=== PATIENT | female | born 1950 | race Caucasian/White ===

== ENCOUNTER 2019-10-09 07:18 | Outpatient (REF) | payer MEDICARE, OTHER, SELFPAY ==
[2019-10-09 13:15] LABS: Chol HDL Ratio 3.68 mg/dL (0.0-4.40); Cholesterol 254 mg/dL (0-200); Glucose 80 mg/dL (65-115); HDL Cholesterol 69 mg/dL (60-100); LDL Cholesterol Calculated 164 mg/dL (50-129); LDL HDL Ratio 2.38 RATIO (0.00-3.22); Triglycerides 107 mg/dL (0-150)
[2019-10-09 13:47] LABS: Estmated Average Glucose 117; Hemoglobin A1C 5.7 % (4.0-6.0)
== END 2019-10-09 07:19 | disposition home or self-care (01) ==
LOC: LAB 07:18
PROVIDERS: Family Provider Internal Medicine; Visit Provider Dermatology
DX: Z01.89 Encounter for other specified special examinations (principal)
CPT/HCPCS: 80061; 82947; 83036

== ENCOUNTER 2020-01-07 08:46 | Outpatient (CLI) | payer MEDICARE, OTHER, SELFPAY ==
--- NOTE | 2020-01-07 09:13 | MM_ITS ---
WS: [id number] BILATERAL SCREENING DIGITAL MAMMOGRAM WITH CAD HISTORY: SCREEN COMPARISON: 10/21/2018 and 10/14/2017 Bilateral CC and MLO views submitted. Computer aided detection analyzed. Breast composition: There are scattered areas of fibroglandular density. No suspicious masses, microc alcifications or architectural distortion. Benign calcifications in each breast. MM/[id number] IMPRESSION: BI-RADS: 2-Benign FOLLOW UP: 1 Year Follow-up
== END 2020-01-07 08:47 | disposition home or self-care (01) ==
LOC: RADSHAW 08:53
PROVIDERS: PCP Internal Medicine; Visit Provider Internal Medicine
DX: Z12.31 Encounter for screening mammogram for malignant neoplasm of breast (principal)
CPT/HCPCS: 77067

== ENCOUNTER 2021-02-14 10:19 | Outpatient (CLI) | payer MEDICARE, BC, SELFPAY ==
--- NOTE | 2021-02-14 10:42 | MM_ITS ---
WS: [id number] BILATERAL SCREENING DIGITAL MAMMOGRAM WITH CAD HISTORY: SCREENING COMPARISON: 01/07/2020 and 10/21/2018 Bilateral CC and MLO views submitted. Computer aided detection analyzed. Breast composition: There are scattered areas of fibroglandular density. No suspicious masses, microc alcifications or architectural distortion. Coarse calcifications in the RIGHT breast. No suspicious i nterval change or mass. MM/[id number] IMPRESSION: BI-RADS: 2-Benign FOLLOW UP: 1 Year Follow-up
== END 2021-02-14 10:20 | disposition home or self-care (01) ==
LOC: RADSHAW 10:27
PROVIDERS: PCP Internal Medicine; Visit Provider Internal Medicine
DX: Z12.31 Encounter for screening mammogram for malignant neoplasm of breast (principal)
CPT/HCPCS: 77067

== ENCOUNTER 2022-03-02 11:05 | Outpatient (CLI) | payer MEDICARE, BC, SELFPAY ==
--- NOTE | 2022-03-02 11:14 | MM_ITS ---
WS: [id number] BILATERAL SCREENING DIGITAL BREAST TOMOSYNTHESIS MAMMOGRAM WITH CAD HISTORY: SCREENING COMPARISON: 02/14/2021, 01/07/2020 Bilateral CC and MLO views with tomosynthesis and synthetic mammography submitted. Computer aided det ection analyzed. Breast composition: There are scattered areas of fibroglandular density. No suspicious masses, microc alcifications or architectural distortion. Benign coarse calcification central RIGHT breast. MM/[id number] IMPRESSION: BI-RADS: 2-Benign FOLLOW UP: 1 Year Follow-up
== END 2022-03-02 11:06 | disposition home or self-care (01) ==
PROVIDERS: PCP Internal Medicine; Visit Provider Internal Medicine
DX: Z12.31 Encounter for screening mammogram for malignant neoplasm of breast (principal)
CPT/HCPCS: 77063; 77067

== ENCOUNTER → 2022-06-08 08:28 | Outpatient (BNVA) | payer MEDICARE, BC, SELFPAY | PROVIDERS: PCP Family Medicine; Visit Provider Family Medicine | DX: I10 Essential (primary) hypertension (principal); M19.90 Unspecified osteoarthritis, unspecified site; M81.0 Age-related osteoporosis without current pathological fracture; Z76.89 Persons encountering health services in other specified circumstances; E78.5 Hyperlipidemia, unspecified | CPT/HCPCS: 80053; 80061; 84443; 85025 ==

== ENCOUNTER 2023-03-14 10:24 | Outpatient (CLI) | payer MEDICARE, BC, SELFPAY ==
--- NOTE | 2023-03-14 10:35 | MM_ITS ---
WS: [id number] Bilateral screening 3D tomosynthesis digital mammogram, 03/14/2023 Clinical Data: SCREENING Comparison: 03/02/2022 02/14/2021 01/07/2020, 10/21/2018, 10/14/2017, 09/19/2016, 08/24/2015, 08/11/2014, , 05/15/2012, 05/03/2011, 05/02/2010, 04/18/2009, 12/25/2007. Findings: The breast parenchymal pattern shows fibroglandular tissue. No spiculated masses or clustered calcifi cations are seen. There are no secondary signs of carcinoma. There is a central coarse calcification of the right breast unchanged. There is a mole marker on the right breast. MM/[id number] Impression: 1. Negative bilateral mammogram unchanged. 2. Recommend annual screening mammograms. BIRADS: 1-Negative FOLLOW UP: 1 Year Follow-up The CAD hot box checker was used.
== END 2023-03-14 10:25 | disposition home or self-care (01) ==
LOC: RAD 10:30 → MOBLMAM 11:01
PROVIDERS: PCP Family Medicine; Visit Provider Family Medicine
DX: Z12.31 Encounter for screening mammogram for malignant neoplasm of breast (principal)
CPT/HCPCS: 77063; 77067

== ENCOUNTER 2023-04-02 10:41 | Outpatient (CLI) | payer MEDICARE, BC, SELFPAY ==
--- NOTE | 2023-04-02 10:49 | XRR_ITS ---
PROCEDURE INFORMATION: Exam: XR Chest Exam date and time: 04/02/2023 11:05 AM Age: 72 years old Clinical indication: Pain; Dyspnea; On breathing; Additional info: Dyspnea, chest pain. TECHNIQUE: Imaging protocol: Radiologic exam of the chest. Views: 2 views. COMPARISON: No relevant prior studies available. FINDINGS: Lungs: Lungs appear hyperinflated but free of acute disease. Minor granulomatous changes. Pleural spaces: Unremarkable. No pleural effusion. No pneumothorax. Heart/Mediastinum: Unremarkable. No cardiomegaly. Bones/joints: No acute findings. XR/XR chest 2V* [id number] IMPRESSION: No acute findings.
== END 2023-04-02 10:42 | disposition home or self-care (01) ==
PROVIDERS: PCP Family Medicine; Visit Provider Family Medicine
DX: R09.1 Pleurisy (principal); I49.9 Cardiac arrhythmia, unspecified; I10 Essential (primary) hypertension; E83.52 Hypercalcemia
CPT/HCPCS: 71046; 80053; 80061; 82306; 82607; 84443; 85027; 86140

== ENCOUNTER → 2023-05-02 14:36 | Outpatient (BNVA) | payer MEDICARE, BC, SELFPAY | PROVIDERS: PCP Family Medicine; Visit Provider Dermatology | DX: L82.1 Other seborrheic keratosis (principal); L81.4 Other melanin hyperpigmentation; D22.5 Melanocytic nevi of trunk; D23.71 Other benign neoplasm of skin of right lower limb, including hip; L57.0 Actinic keratosis | CPT/HCPCS: 17000; 99213 ==

== ENCOUNTER → 2023-10-29 13:56 | Outpatient (BNVA) | payer MEDICARE, BC, SELFPAY | PROVIDERS: PCP Family Medicine; Visit Provider Dermatology | DX: D48.5 Neoplasm of uncertain behavior of skin (principal); L57.8 Other skin changes due to chronic exposure to nonionizing radiation; L81.4 Other melanin hyperpigmentation | CPT/HCPCS: 11104; 99213 ==

== ENCOUNTER → 2023-12-24 14:07 | Outpatient (BNVA) | payer MEDICARE, BC, SELFPAY | PROVIDERS: PCP Family Medicine; Visit Provider Dermatology | DX: L57.8 Other skin changes due to chronic exposure to nonionizing radiation (principal); L81.4 Other melanin hyperpigmentation; D23.9 Other benign neoplasm of skin, unspecified | CPT/HCPCS: 99213 ==

== ENCOUNTER → 2024-02-13 13:05 | Outpatient (BNVA) | payer MEDICARE, BC, SELFPAY | PROVIDERS: PCP Family Medicine; Visit Provider Dermatology | DX: L57.8 Other skin changes due to chronic exposure to nonionizing radiation (principal); L81.4 Other melanin hyperpigmentation; D23.9 Other benign neoplasm of skin, unspecified; D48.5 Neoplasm of uncertain behavior of skin | CPT/HCPCS: 11310; 99213 ==

== ENCOUNTER → 2024-04-14 11:14 | Outpatient (BNVA) | payer MEDICARE, BC, SELFPAY | PROVIDERS: PCP Family Medicine; Visit Provider Family Medicine | DX: I10 Essential (primary) hypertension (principal); G47.00 Insomnia, unspecified; E55.9 Vitamin D deficiency, unspecified | CPT/HCPCS: 80053; 80061; 82306; 84443; 85025 ==

== ENCOUNTER → 2024-11-19 15:04 | Outpatient (BNVA) | payer MEDICARE, OTHER, SELFPAY | PROVIDERS: PCP Family Medicine; Visit Provider Dermatology | DX: D48.5 Neoplasm of uncertain behavior of skin (principal); L82.1 Other seborrheic keratosis; L73.8 Other specified follicular disorders; L72.0 Epidermal cyst; L57.8 Other skin changes due to chronic exposure to nonionizing radiation | CPT/HCPCS: 99213 ==

== ENCOUNTER 2024-12-22 17:25 | Emergency (ER) | payer MEDICARE, OTHER, SELFPAY ==
[2024-12-22 17:32] VITALS: BP 147/70; PULSE 95; RESP 18; TEMP 36.4; O2SAT 96
--- NOTE | 2024-12-22 17:36 | XRR_ITS ---
PROCEDURE INFORMATION: Exam: XR Right Wrist Exam date and time: 12/22/2024 5:46 PM Age: 74 years old Clinical indication: Injury or trauma; Fall; Blunt trauma (contusions or hematomas); Wrist; Right TECHNIQUE: Imaging protocol: Radiologic exam of the right wrist. Views: Four views. COMPARISON: No relevant prior studies available. FINDINGS: Bones/joints: No acute fractures. Chronic fracture deformity of the distal radial metaphysis. No dislocations or subluxations. Moderate to advanced degenerative changes of the triscaphe articulation. Osteopenia. Soft tissues: Normal. XR/XR wrist RT min 3V* [id number] IMPRESSION: 1. No acute fractures or malalignment. 2. Chronic fracture deformity of the distal radius. 3. Osteopenia.
--- NOTE | 2024-12-22 18:13 | W.ED.EXTPRO ---
HPI - Extremity Problem General: Chief complaint: Extremity Injury, Upper Stated complaint: R wrist pain, fall Time Seen by Provider: 12/22/24 17:36 Source: patient Mode of arrival: ambulatory Limitations: no limitations History of Present Illness: 74yo female presents with family for evaluation right wrist pain and swelling following a fall that occurred at 10:00 this morning. Patient reports that she was in her driveway and leaned over to pharmacy picking technician something. States that she saw a snake, jump backwards, lost her balance, and attempted to catch herself with her right arm extended behind her. Patient states she was hoping it was just a sprain and has been applying a cool compress throughout the day, but it is not helping much. Patient reports that she is able to move her fingers with no difficulty. States she is right-hand dominant. She denies any other injury or concern at this time. Associated symptoms: Deny fever(s) Related Data Home Medications ?Medication ?Instructions ?Recorded ?Confirmed aspirin 81 mg tablet,delayed 81 mg PO DAILY 09/20/20 04/14/24 release (Adult Aspirin Regimen) multivitamin with iron (Hair 1 tab PO DAILY 09/20/20 04/14/24 Vitamins tablet) cholecalciferol (vitamin D3) 10 10 mcg PO DAILY 01/11/21 04/14/24 mcg (400 unit) capsule lutein 20 mg capsule 20 mg PO DAILY 01/11/21 04/14/24 Previous Rx's ?Medication ?Instructions ?Recorded triamcinolone acetonide 0.1 % 1 applic topical BID #453.6 grams 01/11/21 topical ointment rizatriptan 5 mg disintegrating See Rx Instructions PO .COMPLEX 04/14/24 tablet #14 tabs zolpidem 10 mg tablet 10 mg PO .at bedtime. 30 days #30 04/14/24 tabs hydrochlorothiazide 12.5 mg tablet See Rx Instructions .Route 10/13/24 .COMPLEX #90 tabs hydrocodone 5 mg-acetaminophen 325 1 tab PO Q8H PRN pain #12 tabs 12/22/24 mg tablet ondansetron 4 mg disintegrating 4 mg PO Q8H #20 tabs 12/22/24 tablet Allergies Allergy/AdvReac Type Severity Reaction Status Date / Time alendronate sodium (From Allergy very sick Verified 04/14/24 10:19 Fosamax) duloxetine (From Cymbalta) Allergy lost weight Verified 04/14/24 10:19 tramadol Allergy throwing up Verified 04/14/24 10:19 Review of Systems Const: Denies: fever(s) or chills GI: Denies: vomiting Musc: Reports: extremity pain (Right wrist) and extremity swelling (Right wrist) PFSH ED PFSH: Medical History Osteoporosis HTN (hypertension) Surgical History H/O shoulder surgery H/O: hysterectomy Family History Other Hypertension Social History Smoking and tobacco/nicotine status: never used tobacco/nicotine Second hand smoke exposure: No Alcohol intake: never Substance/Drug Use: never Adopted: No Caregiver/support person: No Lives independently: No Household members: spouse Housing: House Marital status: Number of children: 2 Highest education level completed: Associate Degree: Occupational, Technical, Vocational Program service: No Current occupational status: retired Pets and animals: Yes Do you think of yourself as: Straight/Heterosexual Current gender identity: Female Special cookie needs: No Agree to transfusion: Yes Female Reproductive History: Para: 2 Spontaneous abortions: No Physical Exam Const: COMMON NORMALS: no acute distress, patient oriented x3, healthy appearing and alert GENERAL APPEARANCE: cooperative OTHER: Patient is sitting upright in vertical flow recliner in no acute distress. She is able to give history with no difficulty. She is interactive with exam appropriately. Family is at bedside HENMT: COMMON NORMALS: normocephalic and atraumatic HEAD & SCALP: normocephalic and atraumatic Chest: CHEST: Yes Symmetrical chest wall rise Resp: COMMON NORMALS: normal respiratory effort EFFORT & INSPECTION: Yes able to speak in complete sentences Extremity: RIGHT UPPER EXTREMITY: Yes wrist Right wrist: Yes inspection (Ecchymosis and swelling noted), Yes ROM (Increased pain with supination/pronation) and Yes neurovascular exam (Moves fingers with no difficulty. Sensation intact. Capillary refill less) Neuro: COMMON NORMALS: patient oriented x3 SENSORIUM/ORIENTATION: Yes alert Psych: COMMON NORMALS: cooperative Course Vital Signs: Vital signs: Vital Signs Temperature 97.5 F L 12/22/24 17:32 Pulse Rate 95 12/22/24 17:32 Respiratory Rate 18 12/22/24 17:32 Blood Pressure 147/70 12/22/24 17:32 Pulse Oximetry 96 12/22/24 17:32 Oxygen Delivery Me thod Room Air 12/22/24 17:32 MDM - Extremity (Nontraumatic) Medical Decision Making 74yo female presents with family for evaluation right wrist pain and swelling following a fall that occurred at 10:00 this morning. Patient reports that she was in her driveway and leaned over to pharmacy picking technician something. States that she saw a snake, jump backwards, lost her balance, and attempted to catch herself with her right arm extended behind her. Patient states she was hoping it was just a sprain and has been applying a cool compress throughout the day, but it is not helping much. Patient reports that she is able to move her fingers with no difficulty. States she is right-hand dominant. She denies any other injury or concern at this time. Patient is nontoxic in appearance. Vital signs are stable. X-ray reveals an intra-articular distal radius fracture, pending radiology review. Discussed finding and reviewed images with patient and the family. Sugar-tong splint applied, hydrocodone and ondansetron provided for patient in the emergency department. Discussed rest, ice, elevation. Discussed follow-up with orthopedics for definitive care of the fracture. Prescription for hydrocodone and ondansetron were sent to patient's pharmacy, sedation precautions provided. Recommend following up with orthopedics as soon as possible. Return precautions provided. Patient and family state understanding and have no further questions or concerns at this time. Lab Data Radiology Impressions Wrist X-Ray 12/22/24 17:36 IMPRESSION: 1. No acute fractures or malalignment. 2. Chronic fracture deformity of the distal radius. 3. Osteopenia. All radiology interpretation(s) finalized by discharge ED provider radiology interpretation(s): 1805: intra-articular distal radius fracture, pending radiology review Discharge Plan Discharge Patient Disposition: Home Clinical Impression: Fracture of right distal radius Qualifiers: Encounter type: initial encounter Fracture type: closed Fracture morphology: unspecified fracture morphology Qualified Code(s): S52.501A - Unspecified fracture of the lower end of right radius, initial encounter for closed fracture Condition: Stable Prescriptions: New hydrocodone-acetaminophen 5-325 mg tablet 1 tab PO Q8H PRN (Reason: pain) Qty: 12 0RF ondansetron 4 mg tablet,disintegrating 4 mg PO Q8H Qty: 20 0RF No Action multivitamin with iron [Hair Vitamins] Tablet 1 tab PO DAILY aspirin [Adult Aspirin Regimen] 81 mg tablet,delayed release (DR/EC) 81 mg PO DAILY cholecalciferol (vitamin D3) 10 mcg (400 unit) capsule 10 mcg PO DAILY lutein 20 mg capsule 20 mg PO DAILY Rx Instructions: give with meal/snack triamcinolone acetonide 0.1 % ointment 1 applic topical BID Qty: 453.6 0RF Rx Instructions: M-F to legs x 4 weeks zolpidem 10 mg tablet 10 mg PO .at bedtime. 30 Days Qty: 30 5RF rizatriptan 5 mg tablet,disintegrating See Rx Instructions PO .COMPLEX Qty: 14 2RF Rx Instructions: take 1 tablet at onset of headache; if no relief, may repeat 1 tablet after at least 2 hrs PO hydrochlorothiazide 12.5 mg tablet See Rx Instructions .ROUTE .COMPLEX Qty: 90 2RF Dose Instruction: TAKE ONE TABLET BY MOUTH EVERY DAY Rx Instructions: TAKE ONE TABLET BY MOUTH EVERY DAY Discharge Orders: Discharge ED (Routine); Ordered 12/22/24 Ordered By: Fredi Triana Referrals: Javier Tesfaye DO [Primary Care Provider] - Discharge Diet: Usual diet Discharge Activity: Increase activity as tolerated Patient Instructions: Wrist Fracture in Adults (ED), Opioid Safety Activity Restrictions/Additional Instructions: A short course of pain medications has been sent to the pharmacy for your fracture. Please do not drive or operate heavy machinery while taking this medication. This medication may make you very sleepy, please use with caution. Ondansetron has been sent to the pharmacy to help with nausea/vomiting that is associated with pain medications. Elevate the right arm to help with swelling. Apply a cool compress for 10 to 15 minutes at a time to help with pain and swelling A referral has been placed to orthopedics. Please follow-up with orthopedics as soon as possible Return to the emergency department if any rapid worsening pain, worsening swelling, further injury, and as needed Print Language: Wolof Coding Level of Care Code ED Toolmaker Grade Three for Frida Jones
[2024-12-22] MEDS: HYDROcodone-acetaminophen 5-325 mg Tablet 1 TAB PO (18:26)
[2024-12-22] MEDS: ondansetron hcl ODT 4 mg Tab PO (18:27)
--- NOTE | 2024-12-23 08:53 | DCPLANNER ---
Message sent to Ortho for follow - X-ray reveals an intra-articular distal radius fracture, pending radiology review. Discussed finding and reviewed images with patient and the family. Sugar-tong splint applied, hydrocodone and ondansetron provided for patient in the emergency department. Discussed rest, ice, elevation. Discussed follow-up with orthopedics for definitive care of the fracture.
== END 2024-12-22 18:52 | disposition home or self-care (01) ==
PROVIDERS: Emergency Provider Nurse Practitioner; PCP Family Medicine
DX: S52.501A Unspecified fracture of the lower end of right radius, initial encounter for closed fracture (principal); Z79.82 Long term (current) use of aspirin; I10 Essential (primary) hypertension; X58.XXXA Exposure to other specified factors, initial encounter
CPT/HCPCS: 29125; 73110; 99283; 99291; A4590; J9999; Q0162

== ENCOUNTER → 2024-12-29 07:47 | Outpatient (BNVA) | payer MEDICARE, OTHER, SELFPAY | PROVIDERS: PCP Family Medicine; Visit Provider Physician Assistant | DX: S52.501A Unspecified fracture of the lower end of right radius, initial encounter for closed fracture (principal); W19.XXXA Unspecified fall, initial encounter; Z46.89 Encounter for fitting and adjustment of other specified devices | CPT/HCPCS: 73110 ==

== ENCOUNTER 2024-12-29 11:42 | Outpatient (CLI) | payer MEDICARE, OTHER, SELFPAY | END 2024-12-29 11:43 | disposition home or self-care (01) | LOC: SPT 11:43 | PROVIDERS: PCP Family Medicine; Visit Provider Physician Assistant | DX: Z46.89 Encounter for fitting and adjustment of other specified devices (principal); S52.591D Other fractures of lower end of right radius, subsequent encounter for closed fracture with routine healing; X58.XXXD Exposure to other specified factors, subsequent encounter | CPT/HCPCS: 97760; L3982 ==

== ENCOUNTER → 2025-01-05 08:32 | Outpatient (BNVA) | payer MEDICARE, OTHER, SELFPAY | PROVIDERS: PCP Family Medicine; Visit Provider Student in an Organized Health Care Education/Training Program | DX: S52.501A Unspecified fracture of the lower end of right radius, initial encounter for closed fracture (principal); W18.39XA Other fall on same level, initial encounter | CPT/HCPCS: 73110; 99214 ==

== ENCOUNTER 2025-01-07 11:38 | Day surgery (SDC) | payer MEDICARE, OTHER, SELFPAY ==
[2025-01-07] VITALS (8 sets, daily range): BP systolic 99–146; BP diastolic 47–101; PULSE 78–99; RESP 16–18; TEMP 36.3–36.4; O2SAT 95–98; BMI 15.7
[2025-01-07] MEDS: sodium chloride 0.9% 1,000 ML 30 ML IV (12:18)
[2025-01-07] MEDS: acetaminophen 1,000 MG/100 ML PIGGYBACK 400 MG IV (12:18)
[2025-01-07] MEDS: ketorolac 30 mg/mL INJ IVP (12:19)
--- NOTE | 2025-01-07 12:55 | W.PM.OPSUD ---
Surgery/Procedure H&P Update DATE OF PROCEDURE: January 07, 2025 DATE H&P PERFORMED: 01/05/25 H&P UPDATE INFORMATION: I have reviewed H&P completed within last 30 days, I have examined patient prior to procedure and No changes to prior documentation PREOP DIAGNOSIS: Right distal radius fracture PRIMARY INDICATION FOR PROCEDURE: Right distal radius displaced and angulated, intra-articular PLANNED PROCEDURE: Operation Date: 01/07/25 13:20 Proposed Procedures p ORIF Wrist ORIF Distal Radius(Right) - Michael Magdaleno DO
--- NOTE | 2025-01-07 13:39 | ANES.PREANE2 ---
Pre-Anesthetic Assessment Height/Weight: Height 5 ft 10 in Weight 110 lb Temp Pulse Resp BP Pulse Ox O2 Del Method 97.5 F L 99 18 143/101 98 Room Air 01/07/25 12:09 01/07/25 12:09 01/07/25 12:09 01/07/25 12:09 01/07/25 12:09 01/07/25 12:09 Preop Diagnosis: Right distal radius fracture Operation Date: 01/07/25 13:20 Proposed Procedures p ORIF Wrist ORIF Distal Radius(Right) - Michael [place], DO Was Beta Trish taken within 24 hours: N/A Was Clonidine taken within 24 hours: N/A Last intake: Intake Last Liquid Date 01/06/25 Last Liquid Time 20:00 Last Solid Date 01/06/25 Last Solid Time 21:00 Social No alcohol and No tobacco Exam alert, oriented x 3 and clear to auscultation bilaterally Sinus arrhythmia Airway Submandibular: within normal limits Cervical ROM: within normal limits Mallampati: Class II Dentition: full Anesthetic Plan ASA status: 3 Anesthesia: Choice Other: Prior issues with anesthesia NPO since yesterday evening History of hypertension on HCTZ. Preop BP 143/101 Daily GERD, stopped her Prilosec on her own. No current symptoms Denies any pulmonary issues METs greater than 4 Plan for preop nerve block Medications/Allergies Home Medications ?Medication ?Instructions ?Recorded ?Confirmed ?Last Taken ?Type aspirin 81 mg tablet,delayed 81 mg PO DAILY 09/20/20 01/06/25 Unknown History release (Adult Aspirin Regimen) multivitamin with iron (Hair 1 tab PO DAILY 09/20/20 01/06/25 01/04/25 History Vitamins tablet) cholecalciferol (vitamin D3) 10 10 mcg PO DAILY 01/11/21 01/06/25 01/04/25 History mcg (400 unit) capsule hydrocodone 5 mg-acetaminophen 325 1 tab PO Q8H PRN pain #12 tabs 12/22/24 01/06/25 Unknown Rx mg tablet right volar fast form #1 ea 12/29/24 01/05/25 Unknown Rx doxylamine succinate 12.5 mg PO PRN PRN Insomnia 01/06/25 01/06/25 01/05/25 History hydrochlorothiazide 12.5 mg tablet 12.5 mg PO DAILY 05/03/2601/06/25 01/04/25 History rizatriptan 5 mg disintegrating 5 mg PO PRN PRN Headache 01/06/25 01/06/25 Unknown History tablet Allergies Allergy/AdvReac Type Severity Reaction Status Date / Time alendronate sodium (From Allergy very sick Verified 01/07/25 12:04 Fosamax) duloxetine (From Cymbalta) Allergy lost weight Verified 01/07/25 12:04 potassium Allergy ADR-Vomitin Verified 01/07/25 12:04 g tramadol Allergy throwing up Verified 01/07/25 12:04 Current Medications Generic Name Dose Route Start Last Admin Trade Name Freq PRN Reason Stop Dose Admin Sodium Chloride 1,000 mls @ 30 mls/hr 01/07/25 12:00 01/07/25 12:18 Sodium Chloride 0.9% IV 01/08/25 11:59 30 mls/hr .Q24H LYNN Administration PFSH Anesthesia Medical History Osteoporosis HTN (hypertension) Surgical History H/O shoulder surgery H/O: hysterectomy Family History Other Hypertension Social History Smoking and tobacco/nicotine status: never used tobacco/nicotine Second hand smoke exposure: No Alcohol intake: never Substance/Drug Use: never Adopted: No Caregiver/support person: No Lives independently: No Household members: spouse Housing: House Marital status: Number of children: 2 Highest education level completed: Associate Degree: Occupational, Technical, Vocational Program service: No Current occupational status: retired Pets and animals: Yes Do you think of yourself as: Straight/Heterosexual Current gender identity: Female Special cookie needs: No Agree to transfusion: Yes Female Reproductive History Para: 2 Spontaneous abortions: No
--- NOTE | 2025-01-07 14:01 | ANES.PROC ---
Anesthesia Procedures Procedure/Date: 01/07/25 Nerve Block ^: Nerve Block 1: Main Anesthesia: other (100mcg fentanyl) Time Out Performed: Yes Consent: requested by attending/covering physician and from patient Nerve block location: supraclavicular Anesthesia monitors applied: pulse oximetry, EKG, BP cuff and oxygen Nerve block position: supine Anesthetic Used: ropivicaine 0.5% Amount of anesthesia used (mL): 30 Ultrasound used to: recognize landmarks Nerve Stimulator Used?: Yes Interscalene/Femoral BLK: other needle (pjunk 4inch) Injection: neg aspiration of heme Patient Tolerated Procedure: well Complications: none Additional Comments: decadron 4mg added to block
[2025-01-07] MEDS: ceFAZolin 2,000 MG in sodium chloride 0.9% (plus) 50 ML 100 MG IV (14:40)
--- NOTE | 2025-01-07 15:45 | PM.OP ---
Operative Report Date of procedure: January 07, 2025 Surgeon: Michael Magdaleno DO Hull Grinder: Jam Magdaleno PA-C: PA was necessary for assistance in this case with hand positioning to execute the procedure, retraction and protection of neurovascular structures as well as to assist in fracture reduction as well as fixation, with wound closure and dressing/splint application. Procedure: Preop Diagnosis ?Right?distal?radius?fracture ? Procedure: Post-op diagnosis: Same, 3 part intra-articular Procedure done: Right?distal?radius?open reduction internal fixation, 3-part intra-articular Implants: ?Arthrex Right 3-hole narrow volar locking plate Combination of locking and nonlocking screws 2.7 mm?distal Combination of locking and nonlocking screws 3.5 mm proximal Surgeon: Michael Magdaleno DO Anesthesia: General and nerve Block (Regional) Estimated blood loss: 10 mL Tourniquet time: 31 minutes IV fluids: See anesthesia record Complications: None Findings: See operative report narrative Condition: stable Disposition: same day Brief History: Patient is a 74-year-old female who presented to my office for a [id number] Right?distal?radius?fracture.? Patient has significant comminution and shortening as well as dorsal angulation patient active and at this point time through shared decision making patient like to proceed with a Right?distal?radius?ORIF.? We had a detailed discussion in the office about nonoperative and operative intervention.? At this point time I feel through shared decision? best option would be open reduction internal fixation she is active and already has a considerable deformity?? as result through shared decision making patient would like to proceed with ORIF Right?distal?radius?fracture.? Detail the risk benefits complication alternatives to treatment option.? Understanding risk for surgery patient elects to proceed with surgical intervention.? All questions been answered at this time. Procedure: Patient seen and evaluated in the preoperative holding area.? Consent reviewed and signed with patient.? Correct extremities were marked and consent was reviewed and signed.? Patient was seen and evaluated by anesthesia department.? Underwent regional anesthesia. Once cleared for surgery pt was taken back to the operative suite.? Patient was then transported into the operative suite and kept on the OR gurney, all bony prominences well-padded patient was appropriate secured to bed in supine position.? An armboard was applied to the Right upper extremity.? The Right upper extremity had a nonsterile tourniquet applied.? Patient subsequently was then prepped and draped in standard orthopedic fashion she underwent anesthesia per the anesthesia department.? A final timeout was performed.? Patient received appropriate preoperative antibiotics. Esmarch was used exsanguinate the Right upper extremity and tourniquet was insufflated to 250 mmHg. A standard modified FCR volar approach was performed to the Right?distal?radius.? Sharp scalpel incision through skin and subcutaneous tissue.? I then switched to Littler dissection scissors identify the FCR tendon releases out of the sheath both proximally and?distally mobilized the tendon ulnarly and then subsequently incised the floor of the FCR tendon sheath with care to just incise the floor.? I then bluntly sweep the FPL tendon muscle belly ulnarly and placed blunt self-retaining retractor.? At this point time I direct visualization of the pronator quadratus which was incised in standard L fashion off the radial and?distal?border in the?distal?radius?and fracture site was scraped clean of interposed muscle belly.? I then identified the 3 part intra-articular?distal?radius?fracture.? This was subsequently opened above and freed of interposing muscle belly as well as periosteum and fracture hematoma.? I did have to utilize my [place] which was placed through the fracture pattern and disengage the fracture and performed manual manipulation and anatomic reduction of the?distal?radius?fracture.? ?Once satisfied with reduction and had appropriate anatomic reduction of the volar cortex.? This was confirmed with mini C arm in multiple orthogonal imaging.? At this point time? I selected a Arthrex anatomic?distal?radius?plate utilizing a narrow 3-hole plate which would have appropriate spread?distally.? This was then placed up to the?distal?radius?while maintaining my reduction, pins were placed?distally and proximally to confirm appropriate placement of the plate along the?distal?radius.? Minor adjustments were made and once I was satisfied I then subsequently drilled a bicortical 3.5 screw proximally in the oblong hole to allow for appropriate sliding of the?distal?radius?plate appropriately to perfect position on the?distal?radius.? This had excellent fixation and purchase and brought the plate to bone.? While maintaining my reduction I then confirmed in multiple orthogonal imaging that my plate was in appropriate position.? Once satisfied with my position I then subsequently placed the peek targeting guide on the?distal?locking screws with Arthrex.? The locking guide was then subsequently loaded and I subsequently drilled and placed a fully threaded cortical screw to compress the plate to bone for the?distal?fracture fragment.? This was performed with plan to then remove this and placed a shorter locking screw had bicortical fixation with excellent purchase and appropriate reduction of my volar tilt and bringing plate to bone of the?distal?fragment and plate.? Once I was satisfied with my plate position as well as reduction of the?distal?radius?which was confirmed on AP oblique and lateral imaging I then subsequently drilled measured and placed 3 locking screws around this cortical screw.? Then I subsequently removed the cortical screw and placed a shorter locking screw that did not penetrate the dorsal cortex.?? This completed my?distal?fixation.? I did utilize mini C arm to confirm appropriate placement of the screws these were all within the?distal?radius?and no joint involvement within the radiocarpal joint or the DRUJ.? These had appropriate subchondral support and maintenance of reduction and fixation of the?distal?radius?fracture.? ?I then turned my attention proximally and then I screwed in the locking guides for my final to screws proximally these were then subsequently drilled measured and appropriate length locking screws were then placed proximally with excellent fixation and locking technology into the plate.? This completed my construct.? The peek guide was subsequently removed and final imaging of the Right?distal?radius?open reduction internal fixation was taken of AP lateral as well and is orthogonal imaging.? I then took a inclination view which showed my radial styloid screw was out of the penetration of the joint.? All my?distal?screws were appropriate length did not penetrate dorsal cortex and did not penetrate the joint.? This completed my fixation.? Smooth wrist range of motion was then noted with no evidence of clicking. Wrist was then taken through pronation supination and stressed the DRUJ which was found to be stable.? The wound was then thoroughly irrigated.? Tourniquet was then subsequently deflated.? Hemostasis satisfactory with bipolar electrocautery.? I then subsequently placed interrupted 3-0 Vicryl sutures for subcutaneous tissue and then subsequently placed a nylon the skin for closure.? Incision was then dressed with Xeroform 4 x 4's Kerlix cast padding and a volar Ortho-Glass splint was then applied with Michael wrap and placed in a sling.? Disposition: Patient taken to PACU in stable condition recovering well receive appropriate discharge instructions as well as pain medication postoperatively.? Maintain splint until follow-up.? Nonweightbearing to operative upper extremity We will follow-up with Dr. Magdaleno in the office in 2 weeks.? If any questions or concerns feel free to contact the office.
--- NOTE | 2025-01-07 15:46 | W.PM.BPON ---
Date of Procedure: [January 07, 2025] Surgeon: [Dr. Magdaleno DO] Powdered Sugar Supervisor(s): [Jam Magdaleno PA-C] Procedure(s) performed: [Right wrist distal radius open reduction internal fixation] Findings of the procedure(s): [Right wrist distal radius displaced fracture. Procedure went well and as planned.] Estimated blood loss: [10 ml] Specimen(s) removed: [N/A] Post-operative diagnosis: [Right distal radius displaced fracture]
--- NOTE | 2025-01-07 15:48 | PM.PACU ---
PACU note Narrative: Patient is a 74-year-old female who just underwent a right wrist distal radius ORIF. Patient transferred to PACU in stable condition. Pain is well controlled. Dressing on hand is dry and in place. Patient's fingers are warm and well-perfused. Patient can wiggle fingers. normal cap refill under 2 seconds. Unable to perform any further assessment on motor or sensation due to residual block. Exam: awake Disposition: discharged
--- NOTE | 2025-01-07 16:16 | ANE.PACU2 ---
Inpatient post-anesthesia follow up: Airway intact: Yes Vital signs: Temperature 97.4 F Pulse Rate 80 Respiratory Rate 16 Blood Pressure 124/72 Pulse Oximetry 95 Oxygen Delivery Me thod Room Air Oxygen Flow Rate Fraction of Inspir ed Oxygen Hydration adequate: Yes Nausea and vomiting: No Pain level: 1 Mental status: Baseline
== END 2025-01-07 17:18 | disposition home or self-care (01) ==
PROVIDERS: PCP Family Medicine; Visit Provider Student in an Organized Health Care Education/Training Program
PROC: (CPT 25609; principal; 2025-01-07 13:10)
DX: S52.571A Other intraarticular fracture of lower end of right radius, initial encounter for closed fracture (principal); I10 Essential (primary) hypertension; K21.9 Gastro-esophageal reflux disease without esophagitis; M81.0 Age-related osteoporosis without current pathological fracture; Z79.899 Other long term (current) drug therapy; Z79.82 Long term (current) use of aspirin; Z88.5 Allergy status to narcotic agent; Z88.8 Allergy status to other drugs, medicaments and biological substances; W18.39XA Other fall on same level, initial encounter
CPT/HCPCS: 25609; 76000; C1713; J0131; J0690; J1100; J1885; J2405; J2704; J7030; J9999

== ENCOUNTER → 2025-01-26 15:21 | Outpatient (BNVA) | payer MEDICARE, OTHER, SELFPAY | PROVIDERS: PCP Family Medicine; Visit Provider Student in an Organized Health Care Education/Training Program | DX: Z98.890 Other specified postprocedural states (principal); S52.501D Unspecified fracture of the lower end of right radius, subsequent encounter for closed fracture with routine healing; X58.XXXD Exposure to other specified factors, subsequent encounter | CPT/HCPCS: 73110 ==

== ENCOUNTER 2025-01-26 16:17 | Outpatient (CLI) | payer MEDICARE, OTHER, SELFPAY | END 2025-01-26 16:18 | disposition home or self-care (01) | LOC: SOT 16:22 | PROVIDERS: PCP Family Medicine; Visit Provider Student in an Organized Health Care Education/Training Program | DX: Z46.89 Encounter for fitting and adjustment of other specified devices (principal); S52.501D Unspecified fracture of the lower end of right radius, subsequent encounter for closed fracture with routine healing; W18.39XD Other fall on same level, subsequent encounter | CPT/HCPCS: 97760; L3906 ==

== ENCOUNTER → 2025-02-23 13:43 | Outpatient (BNVA) | payer MEDICARE, OTHER, SELFPAY | PROVIDERS: PCP Family Medicine; Visit Provider Student in an Organized Health Care Education/Training Program | DX: Z98.890 Other specified postprocedural states (principal); S52.501D Unspecified fracture of the lower end of right radius, subsequent encounter for closed fracture with routine healing; X58.XXXD Exposure to other specified factors, subsequent encounter | CPT/HCPCS: 73110 ==

== ENCOUNTER 2025-02-23 14:28 | Outpatient (CLI) | payer MEDICARE, OTHER, SELFPAY | END 2025-02-23 14:29 | disposition home or self-care (01) | PROVIDERS: PCP Family Medicine; Visit Provider Student in an Organized Health Care Education/Training Program | DX: Z46.89 Encounter for fitting and adjustment of other specified devices (principal); S52.501A Unspecified fracture of the lower end of right radius, initial encounter for closed fracture; W18.39XA Other fall on same level, initial encounter | CPT/HCPCS: L3908 ==

== ENCOUNTER 2025-03-10 09:42 | Outpatient (RCR) | payer MEDICARE, OTHER, SELFPAY | END 2025-04-01 23:59 | disposition home or self-care (01) | LOC: SOT 09:42 | PROVIDERS: Visit Provider Student in an Organized Health Care Education/Training Program | DX: S52.501A Unspecified fracture of the lower end of right radius, initial encounter for closed fracture (principal); X58.XXXA Exposure to other specified factors, initial encounter | CPT/HCPCS: 97022; 97110; 97140; 97165 ==

== ENCOUNTER 2025-03-17 10:07 | Outpatient (CLI) | payer MEDICARE, OTHER, SELFPAY ==
--- NOTE | 2025-03-17 10:13 | MM_ITS ---
WS: [id number] BILATERAL SCREENING DIGITAL TOMOSYNTHESIS MAMMOGRAM WITH CAD HISTORY: SCREENING COMPARISON: 03/16/2024, 03/14/2023 Bilateral CC and MLO views with tomosynthesis and synthetic mammography submitted. Computer aided detection analyzed. Breast composition: There are scattered areas of fibroglandular density. No suspicious masses, microcalcifications or architectural distortion. Benign calcifications in each breast. MM/MM scr BI tomosynthesis [id number] IMPRESSION: BI-RADS: 2 - Benign. FOLLOW UP: 1 Year Follow-up
== END 2025-03-17 10:08 | disposition home or self-care (01) ==
PROVIDERS: Visit Provider Family Medicine
DX: Z12.31 Encounter for screening mammogram for malignant neoplasm of breast (principal); R92.323 Mammographic fibroglandular density, bilateral breasts; R92.1 Mammographic calcification found on diagnostic imaging of breast
CPT/HCPCS: 77063; 77067

== ENCOUNTER → 2025-03-30 13:15 | Outpatient (BNVA) | payer MEDICARE, OTHER, SELFPAY | PROVIDERS: PCP Family Medicine; Visit Provider Student in an Organized Health Care Education/Training Program | DX: Z98.890 Other specified postprocedural states (principal); S52.501D Unspecified fracture of the lower end of right radius, subsequent encounter for closed fracture with routine healing; X58.XXXD Exposure to other specified factors, subsequent encounter | CPT/HCPCS: 73110; 99213 ==

== ENCOUNTER → 2025-04-08 10:30 | Outpatient (BNVA) | payer MEDICARE, OTHER, SELFPAY | PROVIDERS: PCP Family Medicine; Visit Provider Family Medicine | DX: I10 Essential (primary) hypertension (principal); E78.2 Mixed hyperlipidemia | CPT/HCPCS: 80053; 80061; 84443 ==